=== PATIENT | female | born 1960 | race Caucasian/White ===

== ENCOUNTER → 2017-12-23 | Outpatient (CLI) | payer BC ==
[~2017-12-23] MED LIST: Flonase 0.05% N16 GM; SERT100 PO
== END | disposition home or self-care (01) ==
LOC: LAB SHORT 11:26 → PLD 11:26
DX: L82.1 Other seborrheic keratosis (principal)
CPT/HCPCS: 88305

== ENCOUNTER 2019-10-06 05:57 | Day surgery (SDC) | payer BC ==
[~2019-10-06] VITALS: Ht 160 cm; Wt 68.0 kg
[~2019-10-06 05:57] MED LIST changes: +ATOR40TA PO; +NP THYROID 120120 MG PO
[2019-10-06 06:54] LABS: BASOPHILS ABSOLUTE AUTO 0.05 K/mm3 (0.00-0.23); BASOPHILS PERCENT AUTO 1 % (0-2); EOSINOPHILS PERCENT AUTO 2 % (0-6); Hematocrit 43.5 % (33.0-51.0); Hemoglobin 14.6 g/dL (11.5-16.0); IMMATURE GRAN ABSOLUTE AUTO 0.01 K/mm3 (0.00-0.10); IMMATURE GRAN PERCENT AUTO 0 % (0-1); LYMPHOCYTES ABSOLUTE AUTO 1.85 K/mm3 (0.84-5.20); LYMPHOCYTES PERCENT AUTO 36 % (21-46); MONOCYTES ABSOLUTE AUTO 0.46 K/mm3 (0.16-1.47); MONOCYTES PERCENT AUTO 9 % (4-13); Mean Corpuscular HGB 28.7 pg (26.0-34.0); Mean Corpuscular HGB Conc 33.6 g/dL (31.5-36.5); Mean Corpuscular Volume 86 fL (80-100); Mean Platelet Volume 10.2 fL (9.1-12.4); NEUTROPHILS ABSOLUTE AUTO 2.72 K/mm3 (1.96-9.15); NEUTROPHILS PERCENT AUTO 52 % (41-73); Platelet Count 206 K/mm3 (150-400); RDW Coefficient Variation 12.3 % (11.7-14.2); RDW Standard Deviation 38.5 fL (35.1-46.3); Red Blood Cell Count 5.09 M/mm3 (3.80-5.20); White Blood Cell Count 5.19 K/mm3 (4.00-11.30)
[2019-10-06 07:04] LABS: International Normalized Ratio 0.93
[2019-10-06 07:10] LABS: Anion Gap 5 mmol/L (6-16); Blood Urea Nitrogen 16 mg/dL (8-24); Bun/Creatinine Ratio 18.7 (12.0-20.0); CO2, Blood 28 mmol/L (21-32); Calcium, Blood 8.9 mg/dL (8.5-10.1); Chloride, Blood 110 mmol/L (98-108); Creatinine, Blood 0.86 mg/dL (0.40-1.00); Glomerular Filtration Rate >60 (60-); Glucose, Blood 101 mg/dL (70-99); Potassium, Blood 3.6 mmol/L (3.5-5.5); Sodium, Blood 143 mmol/L (136-145)
--- NOTE | 2019-10-06 08:35 | NUR ---
PT TO RECOVERY POST PROCEDURE. PT IS AWAKE AND ORIENTED, PLEASENT AND COOPERATIVE. PT DENIES PAIN OR DISCOMFORT. MONITOR SR 60'S, B/P 115/71, AFEBRILE, SPO2 94% RA. R RADIAL SITE NO SWELLING/HEMATOMA, TR BAND IN PLACE.
--- NOTE | 2019-10-06 10:20 | NUR ---
ATTEMPTED TO REMOVE 2 CC AIR FROM TR BAND, BLEEDING AT SITE; 2 CC AIR REINSTILLED-SITE REMAINS SOFT WITHOUT HEMATOMA.
--- NOTE | 2019-10-06 12:20 | NUR ---
PT DRESSED SELF INDEPENDENTLY, SITE UNCHANGED WITH ACTIVITY; TR BAND REMOVED CLOTH DOT AND IMMOBILIZER PLACED; IV REMOVED-CANNULA INTACT.
--- NOTE | 2019-10-06 12:27 | NUR ---
PT AND SPOUSE RECEIVED DISCHARGE INSTRUCTIONS, MED LIST AND "AFTER CARE" INSTRUCTIONS; VERBALIZED GOOD UNDERSTANDING. PT LEFT FACILITY VIA W/C, CONDITION STABLE.
== END 2019-10-06 12:27 | disposition home or self-care (01) ==
LOC: MHTC 05:57
PROVIDERS: Internal Medicine Cardiovascular Disease
PROC: B201YZZ Plain Radiography of Multiple Coronary Arteries using Other Contrast (ICD-10-PCS; principal; 2019-10-06)
PROC: 4A023N7 Measurement of Cardiac Sampling and Pressure, Left Heart, Percutaneous Approach (ICD-10-PCS; principal; 2019-10-06)
DX: I25.10 Atherosclerotic heart disease of native coronary artery without angina pectoris (principal); I49.3 Ventricular premature depolarization; I49.1 Atrial premature depolarization; I25.84 Coronary atherosclerosis due to calcified coronary lesion; Z88.2 Allergy status to sulfonamides; E78.00 Pure hypercholesterolemia, unspecified; Z79.899 Other long term (current) drug therapy
CPT/HCPCS: 80048; 85025; 85610; 93454; 99152; 99153; C1769; C1894; J1644; J2250; J3010; J7030; J7040; Q9967

== ENCOUNTER → 2020-01-12 | Outpatient (CLI) | payer BC | END | disposition home or self-care (01) | LOC: LAB SHORT 19:56 → LAB 19:56 | DX: R30.0 Dysuria (principal) | CPT/HCPCS: 87086 ==

== ENCOUNTER → 2020-06-15 | Outpatient (CLI) | payer BC ==
[~2020-06-15] MED LIST changes: +FLUT.05NI; +LEVSOD25 PO; +SUMA25 PO
== END | disposition home or self-care (01) ==
LOC: PLD 15:23 → LAB SHORT 15:23
DX: C44.319 Basal cell carcinoma of skin of other parts of face (principal)
CPT/HCPCS: 88305

== ENCOUNTER → 2022-05-21 | Outpatient (CLI) | payer BC | LOC: LAB SHORT 12:02 | DX: C44.309 Unspecified malignant neoplasm of skin of other parts of face (principal) | CPT/HCPCS: 88305 ==

== ENCOUNTER → 2023-02-24 | Outpatient (CLI) | payer BC | END | disposition home or self-care (01) | LOC: LAB SHORT 13:11 → LAB 13:11 | DX: L08.0 Pyoderma (principal) | CPT/HCPCS: 87070; 87077; 87147; 87186; 87205 ==

== ENCOUNTER → 2023-03-26 | Outpatient (CLI) | payer BC ==
[~2023-03-26] MED LIST changes: +HYDR1TAB94 PO
== END | disposition home or self-care (01) ==
LOC: PLD 15:48 → LAB 15:48 → LAB SHORT 15:48
DX: D48.5 Neoplasm of uncertain behavior of skin (principal)
CPT/HCPCS: 88305

== ENCOUNTER → 2024-06-24 | Outpatient (CLI) | payer MEDICARE, BC ==
[2024-07-07 12:40] LABS: HPV HIGH RISK BY TMA Not Detected; HPV SOURCE Vaginal
== END | disposition home or self-care (01) ==
LOC: LAB 17:10 → LAB SHORT 17:10
PROVIDERS: Family Medicine
DX: Z12.4 Encounter for screening for malignant neoplasm of cervix (principal)
CPT/HCPCS: 87624; G0123